=== PATIENT | female | born 1970 | race African-American/Black ===

== ENCOUNTER 2017-03-20 23:39 | Emergency (ER) | payer MEDICAID ==
[~2017-03-20] VITALS: Ht 172.7 cm; Wt 78.0 kg
[2017-03-20 23:41] VITALS: BP 112/57; PULSE 81; RESP 16; TEMP 98.4; O2SAT 100
[2017-03-21] MEDS ORDERED: CELE10TA PO (00:19)
[2017-03-21] MEDS ORDERED: DIVA250ER PO (00:19)
[2017-03-21] MEDS ORDERED: HALO0.5T PO (00:19)
[2017-03-21] MEDS ORDERED: TRAZ50TA12 PO (00:19)
[2017-03-21] MEDS ORDERED: SODIUM CHLOR 0.9% 1000 ML INJ 1,000 ML IV SCH (00:22)
--- NOTE | 2017-03-21 00:28 | PD ---
HPI Chief Complaint: Syncope/Near-Syncope Time Seen by Provider: 00:19 Travel History International Travel<30 days: No Contact w/Intl Traveler<30days: No Traveled to known affect area: No History of Present Illness HPI 46 year old female with history of schizoaffective disorder, here for evaluation of multiple complaints. She states that 3 days ago she woke up with itchiness over her left neck and noticed that there were hives on her face and neck. She then states her skin broke out in tiny pimples. She states that yesterday her legs felt swollen. She is also complaining of right second toe pain and believes it may be an infection there. No fevers. No nausea or vomiting. She states that her throat hurts and it hurts to swallow. PFSH Past Medical History Psychiatric: Yes (schizoeffective) Influenza Vaccination: No ?: Not LMP: february 2017 : 10 Para: 4 Miscarriage: 2 : 4 Past Surgical History Surgical History: No Previous Surgery Social History Alcohol Use: No Tobacco Use: Yes Substance Use: No Allergies-Medications (Allergen,Severity, Reaction): Coded Allergies: No Known Allergies (Unverified , 03/20/17) Reported Meds & Prescriptions Reported Meds & Active Scripts Active Reported Haloperidol 0.5 Mg Tab Unknown Dose PO BID Celexa (Citalopram Hydrobromide) 10 Mg Tab Unknown Dose PO DAILY Depakote ER (Divalproex Sodium) 250 Mg Rhianna Unknown Dose PO DAILY Trazodone (Trazodone HCl) 50 Mg Tab Unknown Dose PO HS Review of Systems Except as stated in HPI: all other systems reviewed are Neg Physical Exam Narrative GENERAL: Well-developed, well-nourished, comfortable, no acute distress. SKIN: Focused skin assessment warm/dry. Tiny papules on face and neck, no warmth or erythema, no pustules, no petechiae. HEAD: Atraumatic. Normocephalic. EYES: Pupils equal and round. No scleral icterus. No injection or drainage. ENT: Mucous membranes pink and moist. Normal pharynx. Uvula midline. No drooling or stridor. NECK: Trachea midline. No JVD. No nuchal rigidity. CARDIOVASCULAR: Regular rate and rhythm. RESPIRATORY: No accessory muscle use. Clear to auscultation. Breath sounds equal bilaterally. GASTROINTESTINAL: Abdomen soft, non-tender, nondistended. MUSCULOSKELETAL: Right second toe with mild swelling with diffuse tenderness without warmth or erythema, without induration. The rest of her joints and extremities are without deformity, without tenderness, with normal range of motion. No edema. NEUROLOGICAL: Awake and alert. No obvious cranial nerve deficits. Motor grossly within normal limits. Normal speech. Data Data Last Documented VS Vital Signs Date Time Temp Pulse Resp B/P Pulse Ox O2 Delivery O2 Flow Rate FiO2 03/20/17 23:41 98.4 81 16 112/57 100 Room Air Orders Beta Hcg (Quant/Titer) (03/21/17 00:22) Complete Blood Count With Diff (03/21/17:22) Comprehensive Metabolic Panel (03/21/17:) Urinalysis - C+S If Indicated (03/21/17:22) Iv Access Insert/Monitor (03/21/17 00:22) Ecg Monitoring (03/21/17:22) Oximetry (03/21/17 00:22) Sodium Chlor 0.9% 1000 Ml Inj (Ns 1000 M (03/21/17 00:22) Sodium Chloride 0.9% Flush (Ns Flush) (03/21/17 00:30) Foot, Complete ([id number]) (03/21/17 ) Methylprednisolone So Succ Inj (Solumedr (03/21/17 00:30) Valproic Acid (Depakene) (03/21/17 00:22) Group A Rapid Strep Screen (03/21/17 00:27) Electrocardiogram (03/21/17 ) Strep Culture (Group A) (03/21/17 00:35) Potassium Chloride (Kcl) (03/21/17 01:45) Labs Laboratory Tests Test 03/21/17 00:32 White Blood Count 10.5 TH/MM3 Red Blood Count 3.39 MIL/MM3 Hemoglobin 8.0 GM/DL Hematocrit 25.8 % Mean Corpuscular Volume 76.0 FL Mean Corpuscular Hemoglobin 23.6 PG Mean Corpuscular Hemoglobin 31.0 % Concent Red Cell Distribution Width 18.4 % Platelet Count 393 TH/MM3 Mean Platelet Volume 7.6 FL Neutrophils (%) (Auto) 55.5 % Lymphocytes (%) (Auto) 33.8 % Monocytes (%) (Auto) 8.9 % Eosinophils (%) (Auto) 1.2 % Basophils (%) (Auto) 0.6 % Neutrophils # (Auto) 5.9 TH/MM3 Lymphocytes # (Auto) 3.6 TH/MM3 Monocytes # (Auto) 0.9 TH/MM3 Eosinophils # (Auto) 0.1 TH/MM3 Basophils # (Auto) 0.1 TH/MM3 CBC Comment AUTO DIFF Urine Color YELLOW Urine Turbidity HAZY Urine pH 7.0 Urine Specific [place] 1.027 Urine Protein TRACE mg/dL Urine Glucose (UA) NEG mg/dL Urine Ketones NEG mg/dL Urine Occult Blood NEG Urine Nitrite NEG Urine Bilirubin NEG Urine Urobilinogen 8.0 MG/DL Urine Leukocyte Esterase TRACE Urine RBC 3 /hpf Urine WBC 3 /hpf Urine Squamous Epithelial 5 /hpf Cells Urine Transitional Epithelial <1 /hpf Cells Urine Amorphous Sediment RARE Urine Bacteria OCC /hpf Urine Mucus FEW /lpf Microscopic Urinalysis Comment CULT NOT INDICATED Sodium Level 144 MEQ/L Potassium Level 3.0 MEQ/L Chloride Level 108 MEQ/L Carbon Dioxide Level 26.3 MEQ/L Anion Gap 10 MEQ/L Blood Urea Nitrogen 11 MG/DL Creatinine 1.15 MG/DL Estimat Glomerular Filtration 51 ML/MIN Rate Random Glucose 93 MG/DL Calcium Level 8.9 MG/DL Total Bilirubin 0.3 MG/DL Aspartate Amino Transf 20 U/L (AST/SGOT) Alanine Aminotransferase 18 U/L (ALT/SGPT) Alkaline Phosphatase 79 U/L Total Protein 6.6 GM/DL Albumin 3.4 GM/DL Human Chorionic Gonadotropin, LESS THAN 1 Quant MIU/ML Valproic Acid (Depakene) Level LESS THAN 3 MCG/ML MDM Medical Decision Making Medical Screen Exam Complete: Yes Emergency Medical Condition: Yes Interpretation(s) EKG: Sinus, rate 60, normal axis, slight prolonged QRS interval of 121, the rest of the intervals are normal, no acute ischemic normality. Differential Diagnosis Allergic rash and, pharyngitis, metabolic abnormality Narrative Course Vital signs are within normal limits. CBC is remarkable for hemoglobin 8, hematocrit 25.8. The patient reports history of anemia. Her MCV is low. Stool is heme negative and brown. This is likely an iron insufficiency anemia. CMP is remarkable for potassium 3.0 which was replaced orally, otherwise remarkable. Beta hCG is negative. Depakote level is negative. Group A strep is negative. UA is remarkable for urobilinogen of 8.0, not suggestive of UTI. Right foot x-ray shows soft tissue swelling without fracture. Patient was made aware of all findings. She is resting comfortably. She is feeling much better after receiving Benadryl. She has a mild cellulitis to her right second toe which I'll give her Keflex for. She is stable for discharge home with outpatient follow-up with her primary care physician this week. She was informed on when to return to the emergency department. She verbalizes understanding and agreement with plan. [facility] Point of Care Internal Pos. & Neg. Controls: Passed Fecal Specimen Occult Blood: Negative Diagnosis Primary Impression: Cellulitis of right toe Additional Impressions: Hypokalemia Anemia Qualified Code: D64.9 - Anemia, unspecified type Referrals: Primary Care Physician 3 days Additional Instructions: Follow-up with your primary care physician this week. Return to the emergency department for worsening symptoms or any other concerns. Scripts Cephalexin (Keflex)500 Mg Doh415 Mg PO Q8H #30 CAP Ref 0 Prov:Ean Kearns MD 03/21/17 Disposition: 01 DISCHARGE HOME Condition: Stable Ean Kearns MD March 21, 2017 00:28
[2017-03-21] MEDS ORDERED: methylPREDNISolone SOD SUCC 125 MG/2 ML VIAL IV PUSH ONE (00:30)
[2017-03-21] MEDS ORDERED: SODIUM CHLORIDE 0.9% FLUSH 10 ML FLUSH IV FLUSH PRN (00:30)
[2017-03-21 00:53] LABS: AUTOMATED NEUTROPHIL # 5.9 TH/MM3 (1.8-7.7); BACTERIA, URINE OCC /hpf; BASOPHIL # 0.1 TH/MM3 (0-0.2); BASOPHIL % 0.6 % (0.0-2.0); BLOOD, URINE NEG (NEG); EOSINOPHIL # 0.1 TH/MM3 (0-0.4); EOSINOPHIL % 1.2 % (0.0-4.0); GLUCOSE,URINE NEG (NEG); HEMATOCRIT 25.8 % (35.0-46.0); KETONE, URINE NEG (NEG); LYMPH % 33.8 % (9.0-44.0); LYMPHOCYTE # 3.6 TH/MM3 (1.0-4.8); MEAN CORPUSCULAR HEMOGLOBIN 23.6 PG (27.0-34.0); MONO % 8.9 % (0.0-8.0); MUCUS URINE FEW /lpf (OCC); NEUT % 55.5 % (16.0-70.0); NITRITE,URINE NEG (NEG); PLATELET COUNT 393 TH/MM3 (150-450); RED BLOOD COUNT 3.39 MIL/MM3 (4.00-5.30); RED CELL DISTRIBUTION WIDTH 18.4 % (11.6-17.2); SQUAMOUS EPITHELIAL CELL URINE 5 /hpf (0-5); TRANSITIONAL EPI CELLS, URINE <1 /hpf; URINE COLOR YELLOW (YELLW/STRAW); WHITE BLOOD COUNT 10.5 TH/MM3 (4.0-11.0)
[2017-03-21 00:54] LABS: COMMENT (UR) CULT NOT INDICATED; CULTURE IF INDICATED CULT NOT INDICATED
[2017-03-21 00:59] LABS: HEMO FLAGS AUTO DIFF
[2017-03-21 01:02] LABS: ALT (GPT) 18 U/L (10-53); ANION GAP 10 MEQ/L (5-15); AST (GOT) 20 U/L (15-37); BICARBONATE 26.3 MEQ/L (21.0-32.0); BLOOD UREA NITROGEN 11 MG/DL (7-18); CHLORIDE 108 MEQ/L (98-107); GLOMERULAR FILTRATION RATE 51 ML/MIN (>89); SODIUM (NA) 144 MEQ/L (136-145)
--- NOTE | 2017-03-21 01:05 | RADRPT ---
EXAM DATE/TIME: 03/21/2017 00:46 [facility] COMPARISON: No previous studies available for comparison. INDICATIONS : Inflammation to 2nd digit. No known injury. MEDICAL HISTORY : None. SURGICAL HISTORY : None. ENCOUNTER: Initial ACUITY: 3 days PAIN SCORE: 0/10 LOCATION: Right Foot FINDINGS: Three view examination of the right foot demonstrates soft tissue swelling without dislocation, or fr acture. The tarsal bones appear intact. The interphalangeal and metatarsophalangeal joints are int act. The calcaneus is intact. Bony mineralization is normal. CONCLUSION: Soft tissue swelling without fracture.. Jovi Muse MD on March 21, 2017 at 1:03 Board Certified Radiologist. This report was verified electronically.
[2017-03-21 01:06] LABS: ALKALINE PHOSPHATASE 79 U/L (45-117); BETA HCG QUANT LESS THAN 1 MIU/ML (0-5); TOTAL BILIRUBIN ADULT 0.3 MG/DL (0.2-1.0)
[2017-03-21] MEDS ORDERED: CEPH-460 PO (01:38)
[2017-03-21 01:42] LABS: SCAN/DIFF AUTO DIFF CONFIRMED
[2017-03-21 01:45] VITALS: BP 122/78
[2017-03-21] MEDS ORDERED: POTASSIUM CHLORIDE 20 MEQ CONTROLLED RELEASE TAB PO ONE (01:45)
[2017-03-21] MEDS ORDERED: CEPHALEXIN MONOHYDRATE 500 MG CAP PO ONE (01:45)
--- NOTE | 2017-03-21 15:28 | EKG ---
Date Performed: 03/21/2017 Time Performed: 01:27:38 PTAGE: 46 years EKG: Sinus rhythm MODERATE INTRAVENTRICULAR CONDUCTION DELAY BORDERLINE ECG NO PREVIOUS TRACING DOCTOR: Jose Sainz Interpretating Date/Time 03/21/2017 15:25:02
== END 2017-03-21 01:48 | disposition home or self-care (01) ==
LOC: NEPE 23:39
DX: L03.031 Cellulitis of right toe (principal); E87.6 Hypokalemia; D64.9 Anemia, unspecified
CPT/HCPCS: 73630; 80053; 80164; 81001; 84702; 85025; 87081; 87880; 93005; 96361; 96374; 99284; J2930; J7030